=== PATIENT | female | born 1985 | race Caucasian/White ===

== ENCOUNTER 2021-08-20 09:39 | Emergency (ER) | payer OTHER ==
[~2021-08-20] VITALS: Ht 162.6 cm; Wt 81.6 kg
[~2021-08-20 09:39] MED LIST: CLEOCIN HCL300 MG PO; FEOSOL325 MG PO; FLEXERIL 10 MG10 MG PO; IBUPROFEN600 MG PO; LEVAQUIN750 MG PO; NAPROSYN500 MG PO; NORCO 5-325 TA1 EACH PO; NORCO 7.5-3251 EACH PO; NORFLEX 100 MG100 MG PO; PERCOCET 5/325 T1 EA PO; VITAMIN B-121000 MCG PO; Voltaren Gel 1% TOP; ZOFRAN4 MG PO; ZYVOX600 MG PO; [UNRECOGNIZED DRUG - OTHER] TOP
[2021-08-20 11:34] LABS: HEMOGLOBIN 13.7 gm/dl (12.3-15.3); RED BLOOD COUNT 4.36 M/UL (4.00-5.10); WHITE BLOOD COUNT 20.4 K/UL (4.5-11.0)
[2021-08-20 11:43] LABS: BUN/CREATININE RATIO 14 (0-10)
== END 2021-08-20 14:25 | disposition home or self-care (01) ==
LOC: ER1 09:39
PROVIDERS: Student in an Organized Health Care Education/Training Program
DX: U07.1 COVID-19 (principal); J12.82 Pneumonia due to coronavirus disease 2019; F17.210 Nicotine dependence, cigarettes, uncomplicated; Z23 Encounter for immunization
CPT/HCPCS: 71045; 80048; 85025; 96374; 99283; J1885; M0243; U0002

== ENCOUNTER 2021-08-20 20:06 | Emergency (ER) | payer OTHER ==
[2021-08-20 21:15] LABS: HEMOGLOBIN 12.5 gm/dl (12.3-15.3); RED BLOOD COUNT 3.95 M/UL (4.00-5.10)
[2021-08-20 21:32] LABS: BUN/CREATININE RATIO 15 (0-10)
== END 2021-08-20 23:40 | disposition home or self-care (01) ==
LOC: ER1 20:06
PROVIDERS: Preventive Medicine Occupational Medicine
DX: U07.1 COVID-19 (principal)
CPT/HCPCS: 71045; 80048; 85025; 96374; 99285; J2405; J7030